=== PATIENT | female | born 2000 | race Two or more races ===

== ENCOUNTER 2019-07-29 18:30 | Emergency (ER) | payer BC, OTHER ==
[~2019-07-29] VITALS: Ht 162.6 cm; Wt 56.7 kg
[2019-07-29] MEDS ORDERED: KETOROLAC TROMETH 60MG/2ML VIAL IM ONE (21:00)
[2019-07-29 22:04] VITALS: BP 116/86
== END 2019-07-29 22:45 | disposition home or self-care (01) ==
LOC: ER 18:30
DX: S46.912A Strain of unspecified muscle, fascia and tendon at shoulder and upper arm level, left arm, initial encounter (principal); M62.838 Other muscle spasm; V49.9XXA Car occupant (driver) (passenger) injured in unspecified traffic accident, initial encounter; Y93.89 Activity, other specified; Y92.89 Other specified places as the place of occurrence of the external cause; Y99.8 Other external cause status
CPT/HCPCS: 71045; 72040; 72070; 81002; 81025; 96372; 99284; J1885

== ENCOUNTER 2019-11-25 13:40 | Emergency (ER) | payer BC, OTHER ==
[~2019-11-25] VITALS: Ht 162.6 cm; Wt 59.0 kg
[2019-11-25 13:52] VITALS: BP 125/81
[2019-11-25] MEDS ORDERED: KETOROLAC TROMETH 60MG/2ML VIAL IM ONE (15:00)
== END 2019-11-25 15:47 | disposition home or self-care (01) ==
LOC: ER 13:40
DX: S16.1XXA Strain of muscle, fascia and tendon at neck level, initial encounter (principal); S39.012A Strain of muscle, fascia and tendon of lower back, initial encounter; S20.213A Contusion of bilateral front wall of thorax, initial encounter; V49.49XA Driver injured in collision with other motor vehicles in traffic accident, initial encounter; Y93.89 Activity, other specified; Y92.488 Other paved roadways as the place of occurrence of the external cause; Y99.8 Other external cause status
CPT/HCPCS: 71046; 72040; 81025; 96372; 99284; J1885